=== PATIENT | female | born 1990 | race Caucasian/White ===

== ENCOUNTER → 2018-03-25 | Outpatient (CLI) | payer SELFPAY ==
--- NOTE | 2018-03-25 12:26 | Diagnostic Imaging Report ---
PROCEDURE: CT abdomen and pelvis without contrast. TECHNIQUE: Multiple contiguous axial images were obtained through the abdomen and pelvis without the use of intravenous contrast. INDICATION: Upper abdominal pain. COMPARISON: No prior studies are available for comparison. FINDINGS: Lung bases are clear. The liver demonstrates diffuse low density consistent with hepatic steatosis. No discrete liver mass is identified. The gallbladder is surgically absent. The pancreas and spleen are unremarkable. No adrenal mass is identified. Right kidney contains tiny nonobstructing calculi. No hydronephrosis is seen. The aorta is non-aneurysmal. There is a fat-containing umbilical hernia. No herniated bowel loops are seen. Bowel loops are normal caliber. No obstruction is seen. There is no ascites. The uterus and ovaries as well as the urinary bladder are unremarkable. IMPRESSION: 1. Hepatic steatosis. 2. Fat-containing umbilical hernia. No bowel obstruction is seen. Dictated by: Dictated on workstation # [id number]
== END ==
LOC: RAD 11:16
PROVIDERS: ATTEND Nurse Practitioner Family
DX: K76.0 Fatty (change of) liver, not elsewhere classified (principal); K43.9 Ventral hernia without obstruction or gangrene; K42.9 Umbilical hernia without obstruction or gangrene
CPT/HCPCS: 74176

== ENCOUNTER 2018-04-11 07:45 | Day surgery (SDC) | payer OTHER ==
[~2018-04-11] VITALS: Ht 167.6 cm; Wt 136.1 kg
[~2018-04-11 07:45] MED LIST: ESCI20TA PO; RANI-515 PO
--- OUTSIDE RECORDS SUMMARY | 2018-04-11 07:51 | XMS REPORT ---
Author Author MARGI FATOU Organization [facility] Address [address] [place] [address] Care Team Providers Care Hospice Administrator Name Role Phone KISERFATOU Mckenzie Unavailable PROBLEMS Type Condition ICD9-CM Code [id number] Code Onset Dates Condition Status SNOMED Code Problem Body mass index (BMI) of 45.0-49.9 in adult Z68.42 Active 527603888 Problem History of vitamin D deficiency Z86.39 Active 396660727 Problem Moderate episode of recurrent major depressive disorder F33.1 Active 536919025 Problem Vitamin D deficiency E55.9 Active 62978226 Problem Hyperinsulinemia E16.1 Active 21166694 Problem Elevated LDL cholesterol level E78.00 Active 123933118 Problem Low serum HDL R74.8 Active 408466530 Problem Anxiety F41.9 Active 92329895 Problem PTSD (post-traumatic stress disorder) F43.10 Active 77986455 Problem Morbid (severe) obesity due to excess calories E66.01 Active 454481979 Problem Gastroesophageal reflux disease without esophagitis K21.9 Active 047228967 Problem Bipolar 1 disorder F31.9 Active 254013480 Problem Borderline abnormal biopsy of kidney R89.9 Active 927443225 ALLERGIES No Information ENCOUNTERS Encounter Location Date Diagnosis [facility] IN [facility] [id number] [place] [address] Sep, Gastroenteritis K52.9 [facility] [id number], [place] [address] Aug, [facility] [id number] [place] [address] Aug, Moderate episode of recurrent major depressive disorder F33.1 ; Anxiety F41.9 ; Bipolar 1 disorder F31.9 ; PTSD (post-traumatic stress disorder) F43.10 and Borderline abnormal biopsy of kidney R89.9 [facility] [address] [facility] [id number] [place] [address] Aug, Encounter for routine adult health examination with abnormal findings Z00.01 ; Body mass index (BMI) of 45.0-49.9 in adult Z68.42 ; Morbid (severe) obesity due to excess calories E66.01 ; History of vitamin D deficiency Z86.39 ; Moderate episode of recurrent major depressive disorder F33.1 ; Screening cholesterol level Z13.220 ; Screening for diabetes mellitus Z13.1 ; History of ovarian cyst Z87.42 ; Gastroesophageal reflux disease without esophagitis K21.9 ; Ventral hernia without obstruction or gangrene K43.9 and Left otitis media with effusion H65.92 IMMUNIZATIONS No Known Immunizations SOCIAL HISTORY Never Assessed REASON FOR VISIT PLAN OF CARE VITAL SIGNS MEDICATIONS Medication Instructions Dosage Frequency Start Date End Date Duration Status MetFORMIN HCl ER 500 mg Orally Once a day 1 tablet with evening meal 24h Aug, 90 days Active RESULTS No Results PROCEDURES No Known procedures INSTRUCTIONS MEDICATIONS ADMINISTERED No Known Medications MEDICAL (GENERAL) HISTORY Type Description Date Medical History Depression Surgical History Cholecystectomy 2012 Surgical History EGD 2015 Surgical History Bilateral Kidney Reflux Reversal 1993 Surgical History T&A 2011 Hospitalization History Childbirth and surgeries Hospitalization History one week stay for mental health/depression- [place], [place]
--- OUTSIDE RECORDS SUMMARY | 2018-04-11 07:51 | XMS REPORT ---
Author Author ANDREAS Solis Organization [facility] Address [address] [place] [address] Care Team Providers Care Carding Supervisor Name Role Phone Will ANDREAS Unavailable PROBLEMS Type Condition ICD9-CM Code [id number] Code Onset Dates Condition Status SNOMED Code Problem Body mass index (BMI) of 45.0-49.9 in adult Z68.42 Active 028894406 Problem History of vitamin D deficiency Z86.39 Active 395210283 Problem Moderate episode of recurrent major depressive disorder F33.1 Active 005798048 Problem Vitamin D deficiency E55.9 Active 15692233 Problem Hyperinsulinemia E16.1 Active 63358892 Problem Elevated LDL cholesterol level E78.00 Active 666827582 Problem Low serum HDL R74.8 Active 220671312 Problem Anxiety F41.9 Active 84561757 Problem PTSD (post-traumatic stress disorder) F43.10 Active 89145195 Problem Morbid (severe) obesity due to excess calories E66.01 Active 238430561 Problem Gastroesophageal reflux disease without esophagitis K21.9 Active 101817258 Problem Bipolar 1 disorder F31.9 Active 761411415 Problem Borderline abnormal biopsy of kidney R89.9 Active 222468722 ALLERGIES Substance Reaction Event Type Date Status SulfADIAZINE Sodium vomiting Drug Allergy Aug, Active Clindamycin HCl vomiting Drug Allergy Aug, Active Cephalexin hives Drug Allergy Aug, Active ENCOUNTERS Encounter Location Date Diagnosis [facility] [address] [facility] [id number] [address] Sep, Gastroenteritis K52.9 [facility] [address] [facility] [id number] [address] Aug, [facility] [address] [facility] [id number], [place] [address] Aug, Moderate episode of recurrent major depressive disorder F33.1 ; Anxiety F41.9 ; Bipolar 1 disorder F31.9 ; PTSD (post-traumatic stress disorder) F43.10 and Borderline abnormal biopsy of kidney R89.9 [facility] [address] [facility] [id number] [place] [address] Aug, Encounter for routine adult health examination [...] SOCIAL HISTORY Never Assessed REASON FOR VISIT intake PLAN OF CARE Activity Details Follow Up 1 Week Reason:Depression VITAL SIGNS MEDICATIONS Medication Instructions Dosage Frequency Start Date End Date Duration Status Lexapro 20 mg Orally Once a day 1 tablet 24h 30 days Unknown Amoxicillin 500 mg Orally every 12 hrs 1 capsule 12h Aug, Sep, 10 day(s) Unknown Ranitidine HCl 300 MG Orally 2 times a day prn 1 tablet 30 days Unknown RESULTS No Results PROCEDURES Procedure Date Ordered Result Body Site Psych diagnostic evaluation, new patient Sep 02, 2017 INSTRUCTIONS MEDICATIONS ADMINISTERED No Known Medications MEDICAL (GENERAL) HISTORY Type Description Date Medical History Depression Surgical History Cholecystectomy 2012 Surgical History EGD 2015 Surgical History Bilateral Kidney Reflux Reversal 1993 Surgical History T&A 2011 Hospitalization History Childbirth and surgeries Hospitalization History one week stay for mental health/depression- [place], [place]
--- OUTSIDE RECORDS SUMMARY | 2018-04-11 07:51 | XMS REPORT ---
Author Author SHELTON MAHARAJ Organization [facility] Address [address] [place] [address] Care Team Providers Care Coal Unloader Name Role Phone SHELTON MAHARAJ Unavailable PROBLEMS Type Condition ICD9-CM Code [id number] Code Onset Dates Condition Status SNOMED Code Problem Body mass index (BMI) of 45.0-49.9 in adult Z68.42 Active 376206406 Problem History of vitamin D deficiency Z86.39 Active 877708722 Problem Moderate episode of recurrent major depressive disorder F33.1 Active 486840417 Problem Vitamin D deficiency E55.9 Active 76642901 Problem Hyperinsulinemia E16.1 Active 08094912 Problem Elevated LDL cholesterol level E78.00 Active 217123641 Problem Low serum HDL R74.8 Active 081786281 Problem Anxiety F41.9 Active 24783563 Problem PTSD (post-traumatic stress disorder) F43.10 Active 33168766 Problem Morbid (severe) obesity due to excess calories E66.01 Active 752877267 Problem Gastroesophageal reflux disease without esophagitis K21.9 Active 463306792 Problem Bipolar 1 disorder F31.9 Active 353285376 Problem Borderline abnormal biopsy of kidney R89.9 Active 419445026 ALLERGIES Substance Reaction Event Type Date Status SulfADIAZINE Sodium vomiting Drug Allergy Sep, Active Clindamycin HCl vomiting Drug Allergy Sep, Active Cephalexin hives Drug Allergy Sep, Active ENCOUNTERS Encounter Location Date Diagnosis [facility] [address] [facility] [id number] [address] Sep, Gastroenteritis K52.9 [facility] [address] [id number] [address] Aug, [facility] [address] [facility] [id number], [place] [address] Aug, Moderate episode of recurrent major depressive disorder F33.1 ; Anxiety F41.9 ; Bipolar 1 disorder F31.9 ; PTSD (post-traumatic stress disorder) F43.10 and Borderline abnormal biopsy of kidney R89.9 [facility] [address] [facility] [id number] [place] [address] Aug, Encounter for routine adult health examination [...] SOCIAL HISTORY Never Assessed REASON FOR VISIT Abdominal pain with inspiration for the last couple days- this morning has entire abd wall muscle pain JStrasserRN PLAN OF CARE Activity Details Follow Up prn Reason: VITAL SIGNS Height 66 in 2017-10-05 Weight 304 lbs 2017-10-05 Temperature 96.9 degrees Fahrenheit 2017-10-05 Heart Rate 80 bpm 2017-10-05 Respiratory Rate 20 2017-10-05 BMI 49.06 kg/m2 2017-10-05 Blood pressure systolic 118 mmHg 2017-10-05 Blood pressure diastolic 76 mmHg 2017-10-05 MEDICATIONS Medication Instructions Dosage Frequency Start Date End Date Duration Status Ondansetron HCl 8 MG Orally TID PRN nausea 1 tablet Sep, 5 day(s) Active MetFORMIN HCl ER 500 mg Orally Once a day 1 tablet with evening meal 24h Aug, 90 days Not-Taking Lexapro 20 mg Orally Once a day 1 tablet 24h 30 days Active Ranitidine HCl 300 MG Orally 2 times a day prn 1 tablet 30 days Active RESULTS No Results PROCEDURES No Known procedures INSTRUCTIONS MEDICATIONS ADMINISTERED No Known Medications MEDICAL (GENERAL) HISTORY Type Description Date Medical History Depression Surgical History Cholecystectomy 2012 Surgical History EGD 2015 Surgical History Bilateral Kidney Reflux Reversal 1993 Surgical History T&A 2011 Hospitalization History Childbirth and surgeries Hospitalization History one week stay for mental health/depression- [place], [place]
--- OUTSIDE RECORDS SUMMARY | 2018-04-11 07:51 | XMS REPORT ---
Author Author KISERFATOU Mckenzie Organization [facility] Address [address] [place] [address] Care Team Providers Care Clerical Methods Analyst Name Role Phone KISERFATOU Mckenzie Unavailable PROBLEMS Type Condition ICD9-CM Code [id number] Code Onset Dates Condition Status SNOMED Code Problem Body mass index (BMI) of 45.0-49.9 in adult Z68.42 Active 887204314 Problem History of vitamin D deficiency Z86.39 Active 326332683 Problem Moderate episode of recurrent major depressive disorder F33.1 Active 654778559 Problem Vitamin D deficiency E55.9 Active 97607630 Problem Hyperinsulinemia E16.1 Active 12250035 Problem Elevated LDL cholesterol level E78.00 Active 164730168 Problem Low serum HDL R74.8 Active 450548978 Problem Anxiety F41.9 Active 45567946 Problem PTSD (post-traumatic stress disorder) F43.10 Active 52951631 Problem Morbid (severe) obesity due to excess calories E66.01 Active 088067454 Problem Gastroesophageal reflux disease without esophagitis K21.9 Active 329520927 Problem Bipolar 1 disorder F31.9 Active 334790369 Problem Borderline abnormal biopsy of kidney R89.9 Active 506501292 ALLERGIES Substance Reaction Event Type Date Status SulfADIAZINE Sodium vomiting Drug Allergy Aug, Active Clindamycin HCl vomiting Drug Allergy Aug, Active Cephalexin hives Drug Allergy Aug, Active ENCOUNTERS Encounter Location Date Diagnosis [facility] [address] [facility] [id number], [place] [address] Sep, Gastroenteritis K52.9 [facility] [address] [facility] [id number], [place] [address] Aug, [facility] [address] [facility] [id number], [place] [address] Aug, Moderate episode of recurrent major depressive disorder F33.1 ; Anxiety F41.9 ; Bipolar 1 disorder F31.9 ; PTSD (post-traumatic stress disorder) F43.10 and Borderline abnormal biopsy of kidney R89.9 [facility] [address] [facility] [id number] [place] [address] Aug, Encounter for routine adult health examination [...] SOCIAL HISTORY Never Assessed REASON FOR VISIT Establish Care: having problems with possible abdominal hernia, states showed up about 2 years ago. Pain is more frequent recently. Had endoscopy 18 months ago to rule out ulcer. jammie seymour PLAN OF CARE Activity Details Follow Up 3 Months Reason:CHM/Depression VITAL SIGNS Height 66 in 2017-09-02 Weight 304.6 lbs 2017-09-02 Temperature 98.6 degrees Fahrenheit 2017-09-02 Heart Rate 76 bpm 2017-09-02 Respiratory Rate 18 2017-09-02 BMI 49.16 kg/m2 2017-09-02 Blood pressure systolic 118 mmHg 2017-09-02 Blood pressure diastolic 70 mmHg 2017-09-02 MEDICATIONS Medication Instructions Dosage Frequency Start Date End Date Duration Status Lexapro 20 mg Orally Once a day 1 tablet 24h 30 days Active Ranitidine HCl 300 MG Orally 2 times a day prn 1 tablet 30 days Active Amoxicillin 500 mg Orally every 12 hrs 1 capsule 12h Aug, Sep, 10 day(s) Active RESULTS No Results PROCEDURES Procedure Date Ordered Result Body Site Hemoglobin Test Send Out 0 dollar Sep 02, 2017 COMPLETE CBC W/AUTO DIFF WBC Sep 02, 2017 ASSAY OF VITAMIN D Sep 02, 2017 VENIPUNCT, ROUTINE* Sep 02, 2017 ASSAY THYROID STIM HORMONE Sep 02, 2017 COMPREHEN METABOLIC PANEL Sep 02, 2017 ASSAY OF INSULIN Sep 02, 2017 LIPID PANEL Sep 02, 2017 INSTRUCTIONS MEDICATIONS ADMINISTERED No Known Medications MEDICAL (GENERAL) HISTORY Type Description Date Medical History Depression Surgical History Cholecystectomy 2012 Surgical History EGD 2015 Surgical History Bilateral Kidney Reflux Reversal 1993 Surgical History T&A 2011 Hospitalization History Childbirth and surgeries Hospitalization History one week stay for mental health/depression- [place], [place]
[2018-04-11 08:00] VITALS: BP 116/78
[2018-04-11] MEDS: LACTATED RINGERS 1,000 ML IV PRN ×2 (08:11→10:55)
[2018-04-11 08:14] LABS: BASOPHILS % (AUTO) 0 % (0-10); EOSINOPHILS # (AUTO) 0.1 10^3/uL (0.0-0.3); EOSINOPHILS % (AUTO) 2 % (0-10); HEMATOCRIT 46 % (35-52); HEMOGLOBIN 15.6 G/DL (11.5-16.0); LYMPHOCYTES # (AUTO) 1.7 X 10^3 (1.0-4.0); LYMPHOCYTES % (AUTO) 20 % (12-44); MEAN CORPUSCULAR HEMOGLOBIN 31 PG (25-34); MEAN CORPUSCULAR HGB CONC 34 G/DL (32-36); MEAN CORPUSCULAR VOLUME 90 FL (80-99); MEAN PLATELET VOLUME 10.9 FL (7.4-10.4); MONOCYTES # (AUTO) 0.5 X 10^3 (0.0-1.0); MONOCYTES % (AUTO) 6 % (0-12); NEUTROPHILS % (AUTO) 72 % (42-75); PLATELET COUNT 301 10^3/uL (130-400); RED BLOOD COUNT 5.12 10^6/uL (4.35-5.85); RED CELL DISTRIBUTION WIDTH 13.7 % (10.0-14.5); WHITE BLOOD COUNT 8.4 10^3/uL (4.3-11.0)
[2018-04-11] MEDS ORDERED: LIDOCAINE/EPI 1%-1:200,000 (XYLOCAINE) 10 ML VIAL ONE (08:38)
[2018-04-11] MEDS ORDERED: fentaNYL INJECTION 100 MCG/2 ML AMP ONE (09:11)
[2018-04-11] MEDS ORDERED: MIDAZOLAM 2 MG/2 ML (VERSED) VIAL ONE (09:11)
[2018-04-11] MEDS ORDERED: FAMOTIDINE 20MG/2ML IV (PEPCID) IVP ONE (09:15)
--- NOTE | 2018-04-11 10:07 | Progress Note-Pre Operative ---
Pre-Operative Progress Note H&P Reviewed The H&P was reviewed, patient examined and no changes noted. Time Seen by Provider: 09:51 Date H&P Reviewed: Apr 11, 2018 Time H&P Reviewed: 09:52 Pre-Operative Diagnosis: Incarcerated Ventral/Incisional hernia FRANKIE JOLLEY DO Apr 11, 2018 10:07
[2018-04-11] MEDS ORDERED: ceFAZolin 1,000 MG/10 ML (ANCEF) VIAL ONE (10:35)
[2018-04-11] MEDS ORDERED: proPOfol 200 MG/20 ML (DIPRIVAN) VIAL IV ONE ×2 (11:03→11:06)
[2018-04-11] MEDS ORDERED: ONDANSETRON 4 MG/2 ML (SDV) Z0FRAN ONE (11:03)
[2018-04-11] MEDS ORDERED: DEXAMETHASONE 10 MG/ML (DECADRON) 1 ML VIAL ONE (11:03)
[2018-04-11] MEDS ORDERED: ROCURONIUM 10 MG/ML 5 ML SYRINGE IV ONE (11:03)
[2018-04-11] MEDS ORDERED: NEOSTIGMINE 1 MG/ML 5 ML SYRINGE ONE (11:03)
[2018-04-11] MEDS ORDERED: SEVOFLURANE (ULTANE) 15 ML INHAL SOLN ONE ×2 (11:03→11:30)
[2018-04-11] MEDS ORDERED: GLYCOPYRROLATE 0.2 MG/ML (ROBINUL) 2 ML VIAL ONE (11:03)
[2018-04-11] MEDS ORDERED: LIDOCAINE PF 2% 5 ML (XYLOCAINE) VIAL ONE (11:03)
--- NOTE | 2018-04-11 11:07 | Progress Note-Post Operative ---
Post-Operative Progess Note Surgeon (s)/Computer Support Specialist Instructor (s) Surgeon FRANKIE JOLLEY DO Computer Support Specialist Instructor: Zara Pre-Operative Diagnosis Incarcerated Ventral/Incisional hernia Post-Operative Diagnosis same Procedure & Operative Findings Date of Procedure 04/11/18 Procedure Performed/Findings Lap Inc/Ventral Herniarraphy with mesh placement Anesthesia Type GET Estimated Blood Loss Estimated blood loss (mL): scant Specimens/Packing Specimens Removed none FRANKIE JOLLEY DO Apr 11, 2018 11:07
[2018-04-11] MEDS ORDERED: HYDR-3820 PO (11:08)
--- NOTE | 2018-04-11 11:09 | Discharge Inst-Surgical ---
Discharge Inst-Surgical Depart Medication/Instructions New, Converted or Re-Newed RX: RX Given to Pt/Family Patient Instructions Follow up Appt: Make appointment for 1 week. Instructions: No lifting greater than 10 pounds. No strenuous activity. May shower in 24 hours, no tub bath or soaking. Use incentive spirometer at home as directed. No Smoking Skin/Wound Care: May remove bandages in am. You need to leave the Dermabond on over incision it will fall off on its own. Symptoms to Report: Appetite Changes, Extremity Discoloration, Numbness/Tingling, Swelling Increased , Bleeding Excessive, Eyesight Changes, Pain Increased, Urine Color Change, Constipation(Persistent), Fever over 101 degree F, Pain/Pressure in chest, Urinating Difficulty, Cough Up/Vomit Blood, Heart Beat Irreg/Pounding, Pain/ Pressure in jaw, Vaginal Bleeding Increase, Cramps in feet or legs, Lightheadedness, Pain/Pressure in shoulder, Diarrhea(Persistent), Memory Changes Suddenly, Questions/Concerns, Weight gain consecutive days, Dizziness/ Fainting, Nausea/Vomiting, Shortness of Breath, Weight gain over 2 pounds If questions or concerns contact your physician Or seek help at emergency department. Activity Activity Instructions: Avoid Stress to Incision Driving Instructions: No Driving/Refer to Diet Discharge Diet: No Restrictions Diet After 24 Hours: Clear Liquid if Nauseous If Any Problems/Questions/Issu: Contact Your Physician, Go to Emergency Room Skin/Wound Care Infection Signs and Symptoms: Increased Redness, Foul Odor of Wound, Increased Drainage, Skin Itchy or Has a Rash, Increased Swelling, Temperature Above 101 F Wound Care Comment: Heating pad to neck or shoulder tonight for pain Bathing Instructions: Shower Stitches/[place]/Dermabond Dis: Dermabond Ice Pack: Ice On and Off Site (as needed for pain) FRANKIE JOLLEY DO Apr 11, 2018 11:09
[2018-04-11] MEDS ORDERED: ONDANSETRON 4 MG/2 ML (SDV) Z0FRAN IVP PRN (11:30)
[2018-04-11] MEDS ORDERED: HYDROmorphone 2 MG/ML VIAL (DILAUDID) IV ONE (11:30)
[2018-04-11] MEDS ORDERED: morphine INJ 10 MG/ML 1ML (SYR OR VIAL) IVP ONE (11:30)
[2018-04-11] MEDS ORDERED: KETOROLAC 30 MG/ML VIAL IVP ONE (11:30)
--- NOTE | 2018-04-11 11:33 | Anesthesia-General Post-Op ---
General Patient Condition Mental Status/LOC: Same as Preop Cardiovascular: Satisfactory Nausea/Vomiting: Absent Respiratory: Satisfactory Pain: Controlled Complications: Absent Post Op Complications Complications None Follow Up Care/Instructions Patient Instructions None needed. Anesthesia/Patient Condition Patient Condition Patient is doing well, no complaints, stable vital signs, no apparent adverse anesthesia problems. No complications reported per nursing. LISS ARMENTA CRNA Apr 11, 2018 11:33
[2018-04-11 12:25] VITALS: BP 119/61
[2018-04-11 12:55] VITALS: BP 107/66
[2018-04-11 13:25] VITALS: BP 110/62
[2018-04-11 13:35] VITALS: BP 110/62
--- NOTE | 2018-04-11 18:44 | OPERATIVE REPORT ---
DATE OF SERVICE: PREOPERATIVE DIAGNOSIS: Incarcerated ventral incisional hernia. POSTOPERATIVE DIAGNOSIS: Incarcerated ventral incisional hernia. PROCEDURE: Laparoscopic ventral incisional herniorrhaphy with mesh placement. SURGEON: Frankie Arriaga DO EXCHANGE ADMINISTRATOR: Jayden Zuñiga DO. ANESTHESIA: General endotracheal tube. SPECIMENS: None. BLOOD LOSS: Scant. FLUIDS: Per anesthesia. POSTOPERATIVE CONDITION: Stable. INDICATION FOR PROCEDURE: The patient is a 27-year-old female who has been having some abdominal pain. States she cannot workout, diagnosed with incarcerated incisional ventral hernia. FINDINGS: The patient had incarcerated incisional ventral hernia, reduced, closed, and mesh placed. PROCEDURE NOTE: After informed consent was obtained, the patient was brought to the operating room, placed on table in supine position. She was sterilely prepped and draped in normal fashion. Local lidocaine was used to infiltrate the skin in the left upper quadrant. Just below the ribs, I made an incision with #11 blade, carried down through the skin into subcutaneous tissue and deepened down to subcutaneous tissue with Bovie electrocautery down to the fascia. Fascia incised with Bovie electrocautery, then bluntly spread the muscle aside, went through the posterior fascia and then into the peritoneum. I placed an 11 mm trocar port under direct visualization, created pneumoperitoneum and then placed 2 more ports in normal fashion using local lidocaine, 11 blade for stab incision and the VersaStep system, all done under direct visualization, one in the left lower quadrant and one on the right side just about even with the umbilicus. Able to visualize some omentum stuck into this hernia. Able to easily pull this out and then elected to close this fascial defect. I made a stab incision just above the umbilicus with #11 blade and then advanced a Papo-Jin with a suture and then did a [id number] suture to close the fascia. The fascia closed nicely. I took a picture of this, and at this point, then placed a 4.5 inch Bard mesh, placed into the abdomen and able to grasp this with the Papo-Jin, pulled it right up directly into the middle of the previous defect, laid up nicely, then tacked around the mesh with a secure strap, tacking at the 3 o'clock, 6 o'clock, 9 o'clock, 12 o'clock position and in between these at 0.5 to 1 cm intervals as well as then getting a couple secure strap tacks in the middle, held up very nicely, took a picture, looked good; and at this point, then I removed all ports under direct visualization, allowed pneumoperitoneum to escape. Closed the left lower quadrant incision, closing the fascia with 0 Vicryl [id number] suture and then closed all incisions, closing the two 5 mm incisions with a single interrupted 4-0 undyed Monocryl subcuticular stitch. Closed the left upper quadrant incision with 3 interrupted 4-0 undyed Monocryl subcuticular stitches. Area was cleaned and dried. Dermabond placed and the patient then transferred to recovery room in stable condition. Sponge, instrument and needle count correct at the end of the case. Dr. Zuñiga assisted on this case helping to make incisions, closed the incisions and helping with also placing the mesh. Job ID: [id number] DocumentID: [id number] Dictated Date: 04/11/2018 11:33:51 Skiving Machine Operator Date: 04/11/2018 18:43:43 Dictated By: FRANKIE ARRIAGA DO
== END 2018-04-11 13:35 | disposition home or self-care (01) ==
LOC: SDC 07:45
PROVIDERS: ATTEND Surgery
DX: K43.0 Incisional hernia with obstruction, without gangrene (principal); G47.33 Obstructive sleep apnea (adult) (pediatric); K21.9 Gastro-esophageal reflux disease without esophagitis; F17.210 Nicotine dependence, cigarettes, uncomplicated; E66.01 Morbid (severe) obesity due to excess calories; Z68.42 Body mass index [BMI] 45.0-49.9, adult
CPT/HCPCS: 36415; 84703; 85025; 87081; 94664